=== PATIENT | male | born 1945 | race Caucasian/White ===

== ENCOUNTER 2016-05-22 08:51 | Day surgery (SDC) | payer MEDICARE ==
[~2016-05-22 08:51] MED LIST: Acetaminophen TAB* 325 MG PO PRN; Buffered Lidocaine 1% SYR 3ML* 3 ML/SYR SYRINGE INTRADERM ONE
[2016-05-22] MEDS ORDERED: Midazolam* 1 MG/ML 5 ML VIAL (5 MG) ONE (10:33)
[2016-05-22] MEDS ORDERED: fentaNYL* 50 MCG/ML 2 ML VIAL (100 MCG VIAL) ONE (10:33)
[2016-05-22 13:02] VITALS: BP 144/70
--- NOTE | 2016-05-23 04:06 | OP ---
DATE OF OPERATION: 05/22/16 - [facility] DATE OF : 43 SURGEON: Mesfin Nowak M.D. PREOPERATIVE DIAGNOSIS: Cataract right eye. POSTOPERATIVE DIAGNOSIS: Cataract right eye. OPERATIVE PROCEDURE: Phacoemulsification right eye with IOL. DESCRIPTION OF PROCEDURE: The patient was brought to the operating room after being given 1/2% Alcaine with epinephrine drops in the preoperative area. The eye was prepped and draped in the usual sterile fashion. Sterile drape and eyelid speculum were placed. Again, topical 1/2% Alcaine with epinephrine was given. A paracentesis incision was made at the 9 o'clock position with the No.75 blade. Clear cornea incision 2.2 x 2.2-mm was created at the 12 o'clock position starting at the anterior limbus using the 2.2-mm keratome. The anterior chamber was irrigated with 0.4 mL of 1% non-preservative intracameral lidocaine and filled with DisCoVisc. A capsulorrhexis was completed using the cystotome and the Utrata forceps. Hydrodissection was performed with balanced salt solution. The lens nucleus was removed with the Phacoemulsification handpiece without incident. Cortex was removed with the irrigation-aspiration handpiece. The capsular bag was re-inflated using DisCoVisc and an [id number] 19.5 implant was inserted with the shooter oriented to the 179 [address] meridian. Horizontal reference b[place] were made with the patient in seated position in the preoperative area. The irrigation-aspiration handpiece was used to remove all residual DisCoVisc. The eye was refilled with balanced salt solution and the wound checked and found to be watertight. Topical Maxitrol drops were given. [id number]/[facility] #: [id number] MTDD
[2016-05-23] MEDS ORDERED: Phenylephrine 2.5% OPTH.SOL* 2 ML BTL ONE (14:34)
[2016-05-23] MEDS ORDERED: Lidocaine 2% EPI 1:200000 MPF* 20 ML VIAL ONE (14:34)
[2016-05-23] MEDS ORDERED: Povidone Iodine 5% OPTH* 30 ML BTL ONE (14:34)
[2016-05-23] MEDS ORDERED: acetaZOLAMIDE TAB* 250 MG ONE (14:34)
[2016-05-23] MEDS ORDERED: Flurbiprofen 0.03% OPTH.SOL* 2.5 ML BTL ONE (14:34)
[2016-05-23] MEDS ORDERED: Neomycin/Polymy/Dex OPTH.SUSP* MAXITROL 0.1% 5 ML ONE (14:34)
[2016-05-23] MEDS ORDERED: Cyclopentolate 1% OPTH.SOL* 2 ML BTL ONE (14:34)
[2016-05-23] MEDS ORDERED: Lidocaine 1% MPF* 2 ML VIAL ONE (14:34)
[2016-05-23] MEDS ORDERED: Proparacaine 0.5% OPHTH.SOL* 15 ML BTL ONE (14:34)
== END 2016-05-22 13:00 | disposition home or self-care (01) ==
LOC: OREAST 08:51
PROVIDERS: ATTEND Specialist
DX: H25.811 Combined forms of age-related cataract, right eye (principal); H35.3131 Nonexudative age-related macular degeneration, bilateral, early dry stage; K50.90 Crohn's disease, unspecified, without complications
CPT/HCPCS: A9270-GY; J2250; J3010; V2787

== ENCOUNTER 2016-05-29 07:46 | Day surgery (SDC) | payer MEDICARE ==
[~2016-05-29 07:46] MED LIST changes: +Cyclopentolate 1% OPTH.SOL* 2 ML BTL ONE; +Flurbiprofen 0.03% OPTH.SOL* 2.5 ML BTL ONE; +Lidocaine 1% MPF* 2 ML VIAL ONE; +Lidocaine 2% EPI 1:200000 MPF* 20 ML VIAL ONE; +Neomycin/Polymy/Dex OPTH.SUSP* MAXITROL 0.1% 5 ML ONE; +Phenylephrine 2.5% OPTH.SOL* 2 ML BTL ONE; +Povidone Iodine 5% OPTH* 30 ML BTL ONE; +Proparacaine 0.5% OPHTH.SOL* 15 ML BTL ONE; +acetaZOLAMIDE TAB* 250 MG ONE
[2016-05-29] MEDS ORDERED: Midazolam* 1 MG/ML 2 ML VIAL (2 MG) ONE (10:21)
[2016-05-29] MEDS ORDERED: Propofol* 10 MG/ML 20 ML BTL IV PUSH ONE (10:25)
[2016-05-29 11:06] VITALS: BP 121/67
--- NOTE | 2016-05-29 12:41 | OP ---
DATE OF OPERATION: 05/29/2016. DATE OF : 1945. SURGEON: Mesfin Nowak M.D. PREOPERATIVE DIAGNOSIS: Cataract left eye. POSTOPERATIVE DIAGNOSIS: Cataract left eye. OPERATIVE PROCEDURE: Phacoemulsification left eye with IOL. PROCEDURE: The patient was brought to the operating room after being given 1/2% Alcaine with epinep hrine drops in the preoperative area. The eye was prepped and draped in the usual sterile fashion. Sterile drape and eyelid speculum were placed. Again, topical 1/2% Alcaine with epinephrine was gi belinda. A paracentesis incision was made at the 3 o'clock position with the No.75 blade. Clear cornea incision 2.2 x 2.2-mm was created at the 6 o'clock position starting at the anterior limbus using t he 2.2-mm keratome. The anterior chamber was irrigated with 0.4 mL of 1% non-preservative intracame ral lidocaine and filled with DisCoVisc. A capsulorrhexis was completed using the cystotome and the Utrata forceps. Hydrodissection was performed with balanced salt solution. The lens nucleus was re moved with the Phacoemulsification handpiece without incident. Cortex was removed with the irrigati on-aspiration handpiece. The capsular bag was re-inflated using DisCoVisc and an [id number] implant was inserted with the shooter, oriented to the 174 degree [place]. Horizontal reference b[place] were placed in the preoperative area with the patient in a seated position and the lens rotated to the u p position. The irrigation-aspiration handpiece was used to remove all residual DisCoVisc. The eye was refilled with balanced salt solution and the wound checked and found to be watertight. Topical Maxitrol drops were given. [id number]/[facility] #: [id number]
== END 2016-05-29 11:01 | disposition home or self-care (01) ==
LOC: OREAST 07:46
PROVIDERS: ATTEND Specialist
DX: H25.812 Combined forms of age-related cataract, left eye (principal); H35.3131 Nonexudative age-related macular degeneration, bilateral, early dry stage; K50.90 Crohn's disease, unspecified, without complications; Z79.52 Long term (current) use of systemic steroids
CPT/HCPCS: A9270-GY; J2250; J2704; V2787

== ENCOUNTER 2023-03-26 07:47 | Inpatient (IN) ==
[2023-03-26] MEDS ORDERED: Morphine 4 MG/ML VIAL (1 ml) IV ONE (08:41)
[2023-03-26] MEDS ORDERED: Ondansetron 4 mg VIAL 2 MG/ML 2 ml VIAL IV ONE (08:41)
[2023-03-26 08:58] LABS: Hematocrit 44.6 % (38-53); Hemoglobin 15.5 g/dL (13.2-16.3); Mean Corpuscular Hemoglobin 31.6 pg (27-33); Mean Corpuscular Hgb Conc 34.7 g/dL (31-36); Mean Corpuscular Volume 91.1 fL (80-97); Mean Platelet Volume 8.4 fL (7.5-11.2); Platelet Count 273 10^3/uL (150-450); Red Cell Distribution Width 16.7 % (12-17); White Blood Count 10.9 10^3/uL (3.6-10.2)
[2023-03-26] MEDS ORDERED: Acetaminophen IV 1 GM/100ML 1,000 MG/100 ML BAG IV ONE (09:00)
[2023-03-26] MEDS ORDERED: NS 0.9% 1000 ml BAG 1,000 ML IV ONE (09:00)
[2023-03-26 09:13] LABS: INR 1.15 (0.83-1.13)
[2023-03-26 09:27] LABS: Albumin 3.3 g/dL (3.2-5.2); Albumin/Globulin Ratio 1.1 (1-3); Calcium 9.1 mg/dL (8.6-10.3); Creatinine, Serum 0.69 mg/dL (0.67-1.17); Globulin 2.9 g/dL (2-4); Total Bilirubin 0.9 mg/dL (0.2-1.0); Total Protein 6.2 g/dL (6.4-8.9); eGFR CKD-EPI 94.1 (>60)
[2023-03-26 09:43] LABS: ABS Lymphocytes 0.2 10^3/uL (1.0-4.8); ABS Monocytes 0.7 10^3/uL (0.0-1.1); ABS Nucleated RBC 0.01 10^3/ul; Lymphocyte % 1.8 %; Nucleated Red Blood Cells % 0.1 %/100WBC (0.0-0.8)
[2023-03-26 11:06] LABS: High Sensitivity Troponin 1 Hr 56 pg/mL (<20)
[2023-03-26] MEDS ORDERED: Azithromycin 500 mg/250 ml NS 500 MG/250 ML BAG IVPB ONE (11:21)
[2023-03-26] MEDS ORDERED: cefTRIAXone 1 gm/50 mL D5W 1 GM/50 ML BAG IV ONE (11:21)
[2023-03-26] MEDS ORDERED: Naloxone 0.4 mg VIAL 0.4 mg/ml 1 ml VIAL IV PUSH PRN (13:53)
[2023-03-26] MEDS: HYDROmorphone 1 MG/1 ML SYRINGE IV SLOW PU PRN ×2 (14:54→22:29)
[2023-03-26 17:45] LABS: Urine Appearance Clear; Urine Bilirubin Negative (Negative); Urine Blood Negative (Negative); Urine Color Yellow; Urine Glucose Negative (Negative); Urine Ketones 1+ (Negative); Urine Nitrite Negative (Negative); Urine Protein Negative (Negative); Urine Specific Gravity 1.024 (1.002-1.030); Urine Urobilinogen Negative (Negative)
[2023-03-26] MEDS: fentaNYL Patch Check Q Shift NOTE FOLLOW UP SCH ×2 (19:27)
[2023-03-26] MEDS: Enoxaparin 40 MG/0.4 ML SYR SUBCUT SCH (22:36)
[2023-03-26] MEDS: MESALAMINE 400 MG PO SCH (22:36)
[2023-03-27] MEDS: HYDROmorphone 1 MG/1 ML SYRINGE IV SLOW PU PRN ×2 (03:23→11:26)
[2023-03-27 06:28] LABS: Hematocrit 37.3 % (38-53); Hemoglobin 12.9 g/dL (13.2-16.3); Mean Corpuscular Hemoglobin 31.4 pg (27-33); Mean Corpuscular Hgb Conc 34.7 g/dL (31-36); Mean Corpuscular Volume 90.6 fL (80-97); Mean Platelet Volume 7.6 fL (7.5-11.2); Platelet Count 202 10^3/uL (150-450); Red Blood Count 4.12 10^6/uL (4.06-5.63); Red Cell Distribution Width 16.3 % (12-17); White Blood Count 9.3 10^3/uL (3.6-10.2)
[2023-03-27] MEDS: fentaNYL Patch Check Q Shift NOTE FOLLOW UP SCH ×4 (07:17→18:59)
[2023-03-27 07:57] LABS: ABS Lymphocytes 0.2 10^3/uL (1.0-4.8); ABS Monocytes 0.5 10^3/uL (0.0-1.1); ABS Neutrophils 8.5 10^3/uL (1.5-7.6); ABS Nucleated RBC 0.01 10^3/ul; Calcium 7.7 mg/dL (8.6-10.3); Creatinine, Serum 0.49 mg/dL (0.67-1.17); Lymphocyte % 2.6 %; Magnesium 1.9 mg/dL (1.9-2.7); Nucleated Red Blood Cells % 0.1 %/100WBC (0.0-0.8); Potassium 3.3 mmol/L (3.5-5.0); eGFR CKD-EPI 104.4 (>60)
[2023-03-27] MEDS: cefTRIAXone 1 gm/50 mL D5W 1 GM/50 ML BAG IV SCH (11:30)
[2023-03-27] MEDS: MESALAMINE 400 MG PO SCH ×2 (11:31→14:15)
[2023-03-27] MEDS ORDERED: Gadoteridol (CONTRAST) 279.3 MG/ML 10 ML IV ONE (13:35)
[2023-03-27] MEDS: Azithromycin 500 mg/250 ml NS 500 MG/250 ML BAG IVPB SCH (14:14)
[2023-03-27] MEDS ORDERED: HYDROmorphone 1 MG/1 ML SYRINGE IV SLOW PU PRN (14:23)
[2023-03-27] MEDS ORDERED: Potassium Chloride LIQUID 20 MEQ/15 ML LIQUID PO ONE (16:12)
[2023-03-27] MEDS: Enoxaparin 40 MG/0.4 ML SYR SUBCUT SCH (20:46)
[2023-03-27] MEDS ORDERED: MESALAMINE 400 MG PO SCH (21:00)
[2023-03-27] MEDS ORDERED: guaiFENesin 100 mg/5 ml LIQ unit dose cup PO PRN (22:56)
[2023-03-28] MEDS: fentaNYL Patch Check Q Shift NOTE FOLLOW UP SCH ×4 (06:54→18:33)
[2023-03-28 07:05] LABS: ABS Lymphocytes 0.2 10^3/uL (1.0-4.8); ABS Monocytes 0.6 10^3/uL (0.0-1.1); ABS Neutrophils 8.5 10^3/uL (1.5-7.6); Eosinophil % 0.1 %; Hemoglobin 13.1 g/dL (13.2-16.3); Lymphocyte % 2.7 %; Mean Corpuscular Hemoglobin 30.9 pg (27-33); Mean Corpuscular Hgb Conc 34.4 g/dL (31-36); Mean Corpuscular Volume 89.9 fL (80-97); Mean Platelet Volume 8.1 fL (7.5-11.2); Platelet Count 218 10^3/uL (150-450); Red Blood Count 4.23 10^6/uL (4.06-5.63); Red Cell Distribution Width 16.7 % (12-17); White Blood Count 9.3 10^3/uL (3.6-10.2)
[2023-03-28 07:40] LABS: Calcium 7.8 mg/dL (8.6-10.3); Creatinine, Serum 0.49 mg/dL (0.67-1.17); Magnesium 1.9 mg/dL (1.9-2.7); Potassium 3.2 mmol/L (3.5-5.0); eGFR CKD-EPI 104.4 (>60)
[2023-03-28] MEDS: fentaNYL PATCH 25 MCG/HR 1 PATCH TRANSDERM SCH (09:43)
[2023-03-28] MEDS: fentaNYL PATCH 50 MCG/HR 1 PATCH TRANSDERM SCH (09:44)
[2023-03-28] MEDS: cefTRIAXone 1 gm/50 mL D5W 1 GM/50 ML BAG IV SCH (10:42)
[2023-03-28] MEDS: Azithromycin 500 mg/250 ml NS 500 MG/250 ML BAG IVPB SCH (13:14)
[2023-03-28] MEDS: KCL 20 MEQ/100 ML IVPREMIX 20 MEQ/100 ML BAG IV SCH ×2 (17:19→19:32)
[2023-03-28] MEDS: Enoxaparin 40 MG/0.4 ML SYR SUBCUT SCH (21:46)
[2023-03-29 07:11] LABS: Calcium 7.7 mg/dL (8.6-10.3); Creatinine, Serum 0.48 mg/dL (0.67-1.17); Magnesium 1.7 mg/dL (1.9-2.7); Potassium 3.9 mmol/L (3.5-5.0)
[2023-03-29] MEDS: fentaNYL Patch Check Q Shift NOTE FOLLOW UP SCH ×4 (07:11→19:17)
[2023-03-29] MEDS ORDERED: Magnesium Sulfate 2 gm BAG 2 GM/50 ML BAG IVPB ONE (07:36)
[2023-03-29] MEDS: fentaNYL PATCH 25 MCG/HR 1 PATCH TRANSDERM SCH (08:25)
[2023-03-29] MEDS: fentaNYL PATCH 50 MCG/HR 1 PATCH TRANSDERM SCH (08:25)
[2023-03-29] MEDS: cefTRIAXone 1 gm/50 mL D5W 1 GM/50 ML BAG IV SCH (08:37)
[2023-03-29] MEDS ORDERED: Polyethylene Glycol 3350 17 GM PACKET PO PRN (10:26)
[2023-03-29] MEDS: Docusate LIQ 100 MG/10 ML UDC PO SCH ×2 (12:32→21:51)
[2023-03-29] MEDS: Azithromycin 500 mg/250 ml NS 500 MG/250 ML BAG IVPB SCH (12:32)
[2023-03-29] MEDS: Senna TAB 8.6 mg TAB PO SCH ×2 (12:32→21:51)
[2023-03-29] MEDS ORDERED: Anidulafungin 200 MG in NS 0.9% 200 ML IVPB ONE (16:15)
[2023-03-29] MEDS: Enoxaparin 40 MG/0.4 ML SYR SUBCUT SCH (21:44)
[2023-03-30] MEDS: fentaNYL Patch Check Q Shift NOTE FOLLOW UP SCH ×3 (07:09→19:04)
[2023-03-30] MEDS: Docusate LIQ 100 MG/10 ML UDC PO SCH ×2 (09:23→21:00)
[2023-03-30] MEDS: Senna TAB 8.6 mg TAB PO SCH ×2 (09:25→20:58)
[2023-03-30] MEDS: cefTRIAXone 1 gm/50 mL D5W 1 GM/50 ML BAG IV SCH (09:29)
[2023-03-30 11:28] LABS: ABS Basophils 0.1 10^3/uL (0.0-0.1); ABS Lymphocytes 0.3 10^3/uL (1.0-4.8); ABS Monocytes 0.5 10^3/uL (0.0-1.1); ABS Neutrophils 8.5 10^3/uL (1.5-7.6); ABS Nucleated RBC 0.02 10^3/ul; Eosinophil % 0.1 %; Hematocrit 38.3 % (38-53); Hemoglobin 13.3 g/dL (13.2-16.3); Lymphocyte % 3.7 %; Mean Corpuscular Hemoglobin 31.1 pg (27-33); Mean Corpuscular Hgb Conc 34.7 g/dL (31-36); Mean Corpuscular Volume 89.6 fL (80-97); Mean Platelet Volume 7.9 fL (7.5-11.2); Nucleated Red Blood Cells % 0.2 %/100WBC (0.0-0.8); Platelet Count 229 10^3/uL (150-450); Red Blood Count 4.27 10^6/uL (4.06-5.63); Red Cell Distribution Width 16.5 % (12-17); White Blood Count 9.5 10^3/uL (3.6-10.2)
[2023-03-30 11:46] LABS: Calcium 7.7 mg/dL (8.6-10.3); Creatinine, Serum 0.49 mg/dL (0.67-1.17); Magnesium 1.8 mg/dL (1.9-2.7); Potassium 3.4 mmol/L (3.5-5.0); eGFR CKD-EPI 104.4 (>60)
[2023-03-30] MEDS: fentaNYL PATCH 25 MCG/HR 1 PATCH TRANSDERM SCH (12:56)
[2023-03-30] MEDS: fentaNYL PATCH 50 MCG/HR 1 PATCH TRANSDERM SCH (12:57)
[2023-03-30] MEDS ORDERED: Potassium Chlor 20 meq TAB.ER PO ONE (14:11)
[2023-03-30] MEDS: KCL 20 MEQ/100 ML IVPREMIX 20 MEQ/100 ML BAG IV SCH ×2 (15:34→18:15)
[2023-03-30] MEDS ORDERED: Anidulafungin 100 MG in NS 0.9% 100 ML IVPB SCH (17:00)
[2023-03-30] MEDS: fentaNYL PATCH 100 MCG/HR 1 PATCH TRANSDERM SCH (18:16)
[2023-03-30] MEDS: Enoxaparin 40 MG/0.4 ML SYR SUBCUT SCH (21:01)
[2023-03-31 06:26] LABS: ABS Basophils 0.1 10^3/uL (0.0-0.1); ABS Lymphocytes 0.4 10^3/uL (1.0-4.8); ABS Monocytes 0.5 10^3/uL (0.0-1.1); ABS Neutrophils 8.6 10^3/uL (1.5-7.6); ABS Nucleated RBC 0.02 10^3/ul; Eosinophil % 0.2 %; Hematocrit 38.8 % (38-53); Hemoglobin 13.3 g/dL (13.2-16.3); Mean Corpuscular Hemoglobin 30.9 pg (27-33); Mean Corpuscular Hgb Conc 34.2 g/dL (31-36); Mean Corpuscular Volume 90.4 fL (80-97); Mean Platelet Volume 7.9 fL (7.5-11.2); Nucleated Red Blood Cells % 0.2 %/100WBC (0.0-0.8); Platelet Count 230 10^3/uL (150-450); Red Blood Count 4.29 10^6/uL (4.06-5.63); Red Cell Distribution Width 16.8 % (12-17); White Blood Count 9.5 10^3/uL (3.6-10.2)
[2023-03-31 06:43] LABS: Calcium 7.7 mg/dL (8.6-10.3); Creatinine, Serum 0.44 mg/dL (0.67-1.17); Magnesium 1.7 mg/dL (1.9-2.7); Potassium 4.4 mmol/L (3.5-5.0); eGFR CKD-EPI 107.8 (>60)
[2023-03-31] MEDS: fentaNYL Patch Check Q Shift NOTE FOLLOW UP SCH ×2 (07:31→18:49)
[2023-03-31] MEDS: cefTRIAXone 1 gm/50 mL D5W 1 GM/50 ML BAG IV SCH (09:47)
[2023-03-31] MEDS: Senna TAB 8.6 mg TAB PO SCH ×2 (09:53→20:57)
[2023-03-31] MEDS: Docusate LIQ 100 MG/10 ML UDC PO SCH ×2 (09:54→20:56)
[2023-03-31] MEDS ORDERED: Fluconazole 400 MG IVPREMIX 400 MG/200 ML BAG IVPB ONE ×2 (13:47→13:51)
[2023-03-31] MEDS ORDERED: Fluconazole 200 MG IVPREMIX 200 MG/100 ML BAG IVPB SCH (14:00)
[2023-03-31 14:34] LABS: INR 1.38 (0.83-1.13)
[2023-03-31] MEDS: Timolol 0.5% OPTH.SOL BTL LEFT EYE SCH (20:58)
[2023-03-31] MEDS: Erythromycin OPTH OINT APPLIC OINT LEFT EYE SCH (20:59)
[2023-04-01 06:32] LABS: INR 1.65 (0.83-1.13)
[2023-04-01 06:37] LABS: ABS Basophils 0.1 10^3/uL (0.0-0.1); ABS Lymphocytes 0.4 10^3/uL (1.0-4.8); ABS Monocytes 0.5 10^3/uL (0.0-1.1); ABS Neutrophils 13.8 10^3/uL (1.5-7.6); ABS Nucleated RBC 0.01 10^3/ul; Eosinophil % 0.1 %; Hematocrit 38.2 % (38-53); Hemoglobin 13.1 g/dL (13.2-16.3); Lymphocyte % 2.6 %; Mean Corpuscular Hemoglobin 30.8 pg (27-33); Mean Corpuscular Hgb Conc 34.3 g/dL (31-36); Mean Corpuscular Volume 89.9 fL (80-97); Mean Platelet Volume 7.9 fL (7.5-11.2); Nucleated Red Blood Cells % 0.1 %/100WBC (0.0-0.8); Platelet Count 252 10^3/uL (150-450); Red Blood Count 4.25 10^6/uL (4.06-5.63); Red Cell Distribution Width 16.9 % (12-17); White Blood Count 14.8 10^3/uL (3.6-10.2)
[2023-04-01 06:46] LABS: Calcium 8.1 mg/dL (8.6-10.3); Creatinine, Serum 0.47 mg/dL (0.67-1.17); Potassium 4.1 mmol/L (3.5-5.0); eGFR CKD-EPI 105.7 (>60)
[2023-04-01] MEDS: fentaNYL Patch Check Q Shift NOTE FOLLOW UP SCH ×2 (07:16→19:06)
[2023-04-01] MEDS ORDERED: fentaNYL PATCH 25 MCG/HR 1 PATCH TRANSDERM SCH (09:00)
[2023-04-01] MEDS ORDERED: fentaNYL PATCH 50 MCG/HR 1 PATCH TRANSDERM SCH (09:00)
[2023-04-01] MEDS: Docusate LIQ 100 MG/10 ML UDC PO SCH ×2 (09:36→21:26)
[2023-04-01] MEDS: Senna TAB 8.6 mg TAB PO SCH ×2 (09:37→21:23)
[2023-04-01] MEDS: cefTRIAXone 1 gm/50 mL D5W 1 GM/50 ML BAG IV SCH (09:48)
[2023-04-01] MEDS: Timolol 0.5% OPTH.SOL BTL LEFT EYE SCH ×3 (09:49→21:28)
[2023-04-01] MEDS: Erythromycin OPTH OINT APPLIC OINT LEFT EYE SCH ×3 (09:50→21:29)
[2023-04-01] MEDS ORDERED: Fluconazole 200 MG IVPREMIX 200 MG/100 ML BAG IVPB SCH (14:00)
[2023-04-01] MEDS: Fluconazole 400 MG IVPREMIX 400 MG/200 ML BAG IVPB SCH (14:21)
[2023-04-01] MEDS: Fluconazole IV 400 MG 200 ML IVPB SCH (17:42)
[2023-04-01] MEDS: Magnesium Hydroxide LIQ 30 ML UDC PO PRN (20:22)
[2023-04-02] MEDS: fentaNYL Patch Check Q Shift NOTE FOLLOW UP SCH ×2 (07:14→19:01)
[2023-04-02] MEDS: Senna TAB 8.6 mg TAB PO SCH ×2 (08:42→20:48)
[2023-04-02] MEDS: Timolol 0.5% OPTH.SOL BTL LEFT EYE SCH ×3 (08:43→20:48)
[2023-04-02] MEDS: Docusate LIQ 100 MG/10 ML UDC PO SCH ×2 (08:43→20:49)
[2023-04-02] MEDS: Erythromycin OPTH OINT APPLIC OINT LEFT EYE SCH ×3 (08:43→20:49)
[2023-04-02] MEDS: Fluconazole 400 MG IVPREMIX 400 MG/200 ML BAG IVPB SCH (08:57)
[2023-04-02] MEDS: Magnesium Hydroxide LIQ 30 ML UDC PO PRN (11:03)
[2023-04-02] MEDS: Fluconazole IV 400 MG 200 ML IVPB SCH (11:53)
[2023-04-02] MEDS ORDERED: guaiFENesin 100 mg/5 ml LIQ unit dose cup PO PRN (16:06)
[2023-04-02] MEDS: fentaNYL PATCH 100 MCG/HR 1 PATCH TRANSDERM SCH (17:55)
[2023-04-03] MEDS: fentaNYL Patch Check Q Shift NOTE FOLLOW UP SCH ×2 (07:25→19:20)
[2023-04-03] MEDS: Polyethylene Glycol 3350 17 GM PACKET PO SCH (07:55)
[2023-04-03 10:44] VITALS: BP 142/74
[2023-04-03] MEDS: Senna TAB 8.6 mg TAB PO SCH ×3 (12:31→23:05)
[2023-04-03] MEDS: Timolol 0.5% OPTH.SOL BTL LEFT EYE SCH ×3 (12:31→23:06)
[2023-04-03] MEDS: Fluconazole IV 400 MG 200 ML IVPB SCH (12:31)
[2023-04-03] MEDS: Fluconazole 400 MG IVPREMIX 400 MG/200 ML BAG IVPB SCH (12:31)
[2023-04-03] MEDS: Erythromycin OPTH OINT APPLIC OINT LEFT EYE SCH ×3 (12:31→23:05)
[2023-04-03] MEDS: Docusate LIQ 100 MG/10 ML UDC PO SCH ×2 (12:31→22:49)
[2023-04-03] MEDS ORDERED: Morphine ORAL CONCENTRATE 5 MG/0.25 ML ORAL.SYRIN SL PRN (12:32)
[2023-04-03] MEDS ORDERED: Scopolamine 1 mg/72hr PATCH TRANSDERM SCH (13:00)
[2023-04-03] MEDS: Morphine ORAL CONCENTRATE 5 MG/0.25 ML ORAL.SYRIN SL PRN (22:54)
[2023-04-04] MEDS: Morphine ORAL CONCENTRATE 5 MG/0.25 ML ORAL.SYRIN SL PRN ×3 (01:16→08:40)
[2023-04-04] MEDS: fentaNYL Patch Check Q Shift NOTE FOLLOW UP SCH (07:25)
[2023-04-04] MEDS: Docusate LIQ 100 MG/10 ML UDC PO SCH (08:40)
[2023-04-04] MEDS: Timolol 0.5% OPTH.SOL BTL LEFT EYE SCH (08:40)
[2023-04-04] MEDS: Polyethylene Glycol 3350 17 GM PACKET PO SCH (08:41)
[2023-04-04] MEDS: Senna TAB 8.6 mg TAB PO SCH (08:41)
[2023-04-04] MEDS: Erythromycin OPTH OINT APPLIC OINT LEFT EYE SCH (08:41)
[2023-04-04] MEDS: fentaNYL PATCH 100 MCG/HR 1 PATCH TRANSDERM SCH (11:35)
== END 2023-04-04 11:35 | disposition home or self-care (01) | DRG 542 ==
LOC: EDHOLD 07:47 → ED 07:47 → MED 16:56 → SUATTDRO 03-27 10:32
PROVIDERS: ADMIT Student in an Organized Health Care Education/Training Program; ATTEND Internal Medicine